=== PATIENT | male | born 1990 | race Caucasian/White ===

== ENCOUNTER 2022-11-06 06:23 | Emergency (ER) | payer SELFPAY ==
[2022-11-06 07:24] LABS: #Basophils 0.1 10x3/uL (0.0-0.2); #Eosinphils 0.2 10x3/uL (0.0-0.5); #Monocytes 0.4 10x3/uL (0.0-1.1); #Neutrophils 3.7 10x3/uL (1.5-8.4); %Basophils 0.8 % (0.0-2.0); %Eosinophils 2.9 % (0.0-6.0); %Lymphocytes 25.5 % (18.0-47.0); %Monocytes 7.4 % (0.0-10.0); %Neutrophils 63.1 % (40.0-75.0); Hemoglobin 12.2 g/dL (13.5-17.5); Mean Corpuscular HGB CONC 33.2 g/dL (32.0-36.0); Mean Corpuscular Hemoglobin 29.3 pg (27.0-33.0); Mean Platelet Volume 8.7 fl (7.4-10.4); Platelet Count 244 10x3/uL (150-450); Red Blood Cell (RBC) Count 4.17 10x6/uL (4.32-5.72); White Blood Cell (WBC) Count 5.9 10x3/uL (3.5-10.5)
[2022-11-06 07:36] LABS: Anion Gap 12 mmol/L (10-20); BUN (Urea Nitrogen) 11 mg/dL (8.9-20.6); Calc. Creatinine Clearance 0 mL/min (70-130); Calcium 8.8 mg/dL (7.8-10.44); Carbon Dioxide 26 mmol/L (22-29); Chloride 105 mmol/L (98-107); Estimated GFR 111; Glucose 95 mg/dL (70-105); Sodium 140 mmol/L (136-145)
[2022-11-06] MEDS ORDERED: Potassium Chloride 20 MEQ TAB ONE (07:44)
== END 2022-11-06 07:50 | disposition home or self-care (01) ==
LOC: CSHERS 06:23
DX: S01.512A Laceration without foreign body of oral cavity, initial encounter (principal); R56.9 Unspecified convulsions; D64.9 Anemia, unspecified; E87.6 Hypokalemia; F17.210 Nicotine dependence, cigarettes, uncomplicated; X58.XXXA Exposure to other specified factors, initial encounter
CPT/HCPCS: 80048; 85025; 93005

== ENCOUNTER 2022-11-06 19:04 | Emergency (ER) | payer SELFPAY ==
[2022-11-06] MEDS ORDERED: lamoTRIgine 100 MG TAB PO SCH (21:00)
== END 2022-11-06 20:48 | disposition home or self-care (01) ==
LOC: CSHERS 19:04
DX: R56.9 Unspecified convulsions (principal); F17.210 Nicotine dependence, cigarettes, uncomplicated
CPT/HCPCS: 70450